=== PATIENT | male | born 1985 | race Asian ===

== ENCOUNTER 2020-07-26 16:12 | Emergency (ER) | payer OTHER ==
[~2020-07-26] VITALS: Ht 167.6 cm; Wt 68.9 kg
[2020-07-26 16:22] VITALS: BP 109/72
--- NOTE | 2020-07-26 16:37 | NUR ---
pt presents to ed with c/o eye pain, itching, swelling, and redness since yesterday. states they cannot recall any trauma to eye. pt a&o, resps even and unlabored, nadn.
== END 2020-07-26 17:10 | disposition home or self-care (01) ==
LOC: ED 16:55
DX: H10.023 Other mucopurulent conjunctivitis, bilateral (principal)
CPT/HCPCS: 99283